=== PATIENT | female | born 1995 ===

== ENCOUNTER 2018-04-15 15:49 | Emergency (ER) | payer SELFPAY ==
[2018-04-15 15:56] VITALS: BP 100/67; PULSE 87; RESP 18; TEMP 98.3; O2SAT 97
[2018-04-15 16:46] LABS: SQUAMOUS EPITHIAL 4 /hpf (0-5); URINE BACTERIA RARE (<OCC); URINE BILIRUBIN NEGATIVE (NEGATIVE); URINE BLOOD NEGATIVE (NEGATIVE); URINE CLARITY Clear (Clear); URINE COLOR Yellow (YELLOW); URINE GLUCOSE (UA) NORMAL (Normal); URINE LEUKOCYTE ESTERASE NEG Leu/uL (Negative); URINE PROTEIN NEGATIVE (NEGATIVE)
--- NOTE | 2018-04-15 16:47 | C.PDOC ---
History Of Present Illness 22 year old female presents to the ED for evaluation of dysuria and frequency for x2 day. Patient reports having similar symptoms when she was diagnosed with a UTI. Denies fever, flank pain, nausea, vomiting, diarrhea, vaginal discharge, vaginal bleeding, and any other associated symptoms. Time Seen by Provider: 04/15/18 16:05 Chief Complaint (Nursing): Female Genitourinary History Per: Patient History/Exam Limitations: no limitations Onset/Duration Of Symptoms: Days Current Symptoms Are (Timing): Still Present Past Medical History Reviewed: Historical Data, Nursing Documentation, Vital Signs Vital Signs: Last Vital Signs Temp 98.3 F 04/15/18 15:53 Pulse 87 04/15/18 15:53 Resp 18 04/15/18 15:53 BP 100/67 04/15/18 15:53 Pulse Ox 97 04/15/18 15:53 Family History: States: Unknown Family Hx - Social History Hx Alcohol Use: No Hx Substance Use: No - Immunization History Hx Tetanus Toxoid Vaccination: No Hx Influenza Vaccination: No Hx Pneumococcal Vaccination: No Review Of Systems Constitutional: Negative for: Fever Cardiovascular: Negative for: Chest Pain Respiratory: Negative for: Cough, Shortness of Breath, SOB with Excertion, Wheezing Gastrointestinal: Negative for: Nausea, Vomiting, Diarrhea, Constipation, Other (flank pain. ) Genitourinary: Positive for: Dysuria, Frequency. Negative for: Vaginal Discharge, Vaginal Bleeding Skin: Negative for: Rash Physical Exam - Physical Exam Appears: Well, Non-toxic Skin: Normal Color, Warm, Dry Head: Atraumatic, Normacephalic Eye(s): bilateral: Normal Inspection Respiratory: No Normal Breath Sounds, No Rales, No Rhonchi, No Wheezing Gastrointestinal/Abdominal: Normal Exam, Soft, No Tenderness Back: Normal Inspection, No CVA Tenderness Extremity: Normal ROM Neurological/Psych: Oriented x3, Normal Speech Gait: Steady ED Course And Treatment O2 Sat by Pulse Oximetry: 97 (RA) Pulse Ox Interpretation: Normal Medical Decision Making Medical Decision Making: Plan: -Urine HCG -Urinalysis Had detailed conversation about essentially negative ua. She continues to report dysuria. She denies vulva lesions or vaginal discharge. She is refusing exam. I expressed my concerns for herpes and she denied lesions and is refusing pelvic exam. She denies vaginal discharge. She reports the same symptoms with prior uti and is requesting antibiotics. Ucx sent. Disposition - Disposition Disposition: HOME/ ROUTINE Disposition Time: 17:12 Condition: GOOD Additional Instructions: Follow-up with PMD within 2 days. Return to ED if condition worsens. Take full course of antibiotics. Take pyridium for bladder pain. Prescriptions: Cephalexin [Keflex] 500 mg PO TID #15 capsule Phenazopyridine HCl [Pyridium] 100 mg PO TID #6 tablet Instructions: Urinary Tract Infections in Adults, Phenazopyridine Forms: [employer] ([place]) - Clinical Impression Clinical Impression: UTI (urinary tract infection) - Scribe Statement The provider has reviewed the documentation as recorded by the Scribe (Pau Jeff) Provider Attestation: All medical record entries made by the Scribe were at my direction and personally dictated by me. I have reviewed the chart and agree that the record accurately reflects my personal performance of the history, physical exam, medical decision making, and the department course for this patient. I have also personally directed, reviewed, and agree with the discharge instructions and disposition.
== END 2018-04-15 17:33 | disposition home or self-care (01) ==
LOC: C.ER 15:49
DX: N39.0 Urinary tract infection, site not specified (principal)